=== PATIENT | female | born 1990 | race Caucasian/White ===

== ENCOUNTER 2016-09-07 04:18 | Emergency (ER) | payer OTHER ==
[~2016-09-07] VITALS: Ht 175.3 cm; Wt 105.0 kg
[~2016-09-07 04:18] MED LIST: SERO100T PO
[2016-09-07 04:20] VITALS: BP 121/84; PULSE 79; RESP 14; TEMP 98.7; O2SAT 97
[2016-09-07] MEDS ORDERED: AUGM500T7 PO (04:56)
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
[2016-09-07] MEDS ORDERED: AMOXICILLIN/CLAVULANATE K 500 MG TAB PO ONE (05:00)
[2016-09-08 12:50] LABS: HEPATITIS B SURFACE ANTIBODY GREATER THAN 150 mIU/mL
== END 2016-09-07 05:13 | disposition home or self-care (01) ==
LOC: NEPB 04:18
DX: S51.851A Open bite of right forearm, initial encounter (principal); R56.9 Unspecified convulsions; S40.811A Abrasion of right upper arm, initial encounter; Y04.1XXA Assault by human bite, initial encounter; Y93.F9 Activity, other caregiving; Y99.0 Civilian activity done for income or pay
CPT/HCPCS: 86317; 86703; 86803; 99283